=== PATIENT | male | born 1930 | race Caucasian/White ===

== ENCOUNTER 2016-06-30 11:10 | Day surgery (SDC) | payer MEDICARE, OTHER ==
[~2016-06-30 11:10] MED LIST: APRACLONIDINE HCL 50 DROP BTL RIGHTEYE PRN; PHENYLEPHRINE HCL 50 DROP BTL RIGHTEYE PRN; TROPICAMIDE 150 DROP BTL RIGHTEYE PRN
[2016-06-30 11:28] VITALS: BP 131/76
[2016-06-30] MEDS ORDERED: [UNRECOGNIZED DRUG - OTHER] OP ONE (11:28)
[2016-06-30] MEDS ORDERED: APRACLONIDINE HCL 50 DROP BTL OP ONE (11:29)
[2016-06-30] MEDS ORDERED: PHENYLEPHRINE HCL 50 DROP BTL OP ONE (11:29)
== END 2016-06-30 11:11 | disposition home or self-care (01) ==
LOC: AMB 11:10
PROVIDERS: ATTEND Ophthalmology
PROC: 085J3ZZ Destruction of Right Lens, Percutaneous Approach (ICD-10-PCS; principal; 2016-06-30 12:05)
DX: H26.491 Other secondary cataract, right eye (principal)